=== PATIENT | male | born 1960 | race Hispanic/Latino ===

== ENCOUNTER → 2024-08-05 | Outpatient (CLI) | payer OTHER ==
[2024-08-05 14:18] LABS: BASOPHILS # (AUTO) 0.02 K/uL (0.00-0.20); BASOPHILS % (AUTO) 0.4 % (0.0-5.0); EOSINOPHILS # (AUTO) 0.07 K/uL (0.00-0.70); EOSINOPHILS % (AUTO) 1.4 % (0.0-8.0); HEMATOCRIT 32.5 % (42-54); IMMATURE GRANULOCYTE ABSOLUTE 0.01 K/uL (0-1); LYMPHOCYTES % (AUTO) 40.3 % (21.0-51.0); MEAN CORPUSCULAR HEMOGLOBIN 26.4 pg (27.0-33.0); MEAN CORPUSCULAR HGB CONC 32.9 g/dL (32.0-36.0); MEAN CORPUSCULAR VOLUME 80.2 fL (79-99); MONOCYTES # (AUTO) 0.5 K/uL (0.1-1.0); MONOCYTES % (AUTO) 10.1 % (3.0-13.0); NEUTROPHILS # (AUTO) 2.4 K/uL (1.8-7.7); NEUTROPHILS % (AUTO) 47.6 % (40.0-77.0); PLATELET COUNT (AUTO) 381 K/uL (130-400); RED BLOOD CELL COUNT(AUTO) 4.05 MIL/uL (4.50-6.20); RED CELL DISTRIBUTION WIDTH 19.6 % (11.0-15.5)
[2024-08-05 14:36] LABS: ALBUMIN 3.8 g/dL (3.5-5.0); BILIRUBIN,TOTAL 0.6 mg/dL (0.2-1.0); POTASSIUM 4.3 mmol/L (3.5-5.1); TOTAL PROTEIN, SERUM 7.9 g/dL (6.0-8.3)
[2024-08-05 14:54] LABS: INR 0.97 (0.85-1.15); PROTHROMBIN TIME 10.3 SEC (9.6-11.6)
== END | disposition home or self-care (01) ==
LOC: LAB 13:25
PROVIDERS: ATTEND Internal Medicine
DX: C18.2 Malignant neoplasm of ascending colon (principal); D37.5 Neoplasm of uncertain behavior of rectum; D12.6 Benign neoplasm of colon, unspecified; D50.0 Iron deficiency anemia secondary to blood loss (chronic); K70.9 Alcoholic liver disease, unspecified; R10.30 Lower abdominal pain, unspecified
CPT/HCPCS: 36415; 80053; 82378; 85025; 85610

== ENCOUNTER → 2024-08-08 | Outpatient (CLI) | payer OTHER ==
[~2024-08-08] MED LIST: IOHEXOL 350 MG/ML 100ML INFUS..BTL IV ONE
--- NOTE | 2024-08-08 12:03 | HMCIMG ---
CT CHEST/ABD/PELV W/CONRAST HISTORY: Malignant neoplasm of ascending colon COMPARISON: None TECHNIQUE: Multiple sequential axial images of the chest were obtained from the thoracic inlet through upper abdomen. Patient was given 100 cc of Omnipaque through intravenous route. FINDINGS: COPD changes are seen. Mild interstitial fibrosis changes are noted.. There is no evidence of pulmonary nodule or parenchymal disease. No pleural effusion or pericardial effusion is seen. There is no evidence of pneumothorax. There are normal size mediastinal and hilar lymph nodes. The heart is not enlarged. Degenerative changes of the thoracolumbar spine are present. There is no evidence of adrenal nodule. IMPRESSION: 1. No evidence of pulmonary nodule or effusion is seen. CT CHEST/ABD/PELV W/CONRAST HISTORY: Malignant neoplasm of ascending colon COMPARISON: None TECHNIQUE: Multiple sequential axial images of the abdomen and pelvis were obtained from the dome of the diaphragm through symphysis pubis. Patient was not given contrast through intravenous route. Oral contrast was not given. FINDINGS: Stomach is poorly distended with apparent wall thickening. No bowel obstruction is seen. The liver, spleen, adrenal glands and pancreas are unremarkable. There is no evidence of hydronephrosis bilaterally. No evidence of renal stone is seen. Fecal material is seen in the colon. There are normal size retroperitoneal and mesenteric lymph nodes. No ascites is seen. Atherosclerotic changes are present. No CT evidence of acute appendicitis is seen. Pelvic sidewalls are symmetric bilaterally. Bladder is moderately distended. Anterior bladder wall thickening is seen measuring 17 mm. There is rectal wall thickening posteriorly measuring 2.1 cm in thickness. IMPRESSION: 1. Rectal wall thickening posteriorly measuring 2.1 cm in thickness. No bowel obstruction is seen. Nonspecific gastric wall thickening is also seen. No ascites is seen. Anterior bladder wall thickening is seen. If there is clinical suspicion for cystitis, urinalysis correlation may be helpful. CT was performed with one or more following dose reduction techniques: automated exposure control, adjustment of the mA and kv according to patient's size, or use of a iterative reconstruction technique.
== END | disposition home or self-care (01) ==
LOC: RAH 07:30 → EDUNIT# 08:00
PROVIDERS: ATTEND Internal Medicine
DX: C18.2 Malignant neoplasm of ascending colon (principal); D37.5 Neoplasm of uncertain behavior of rectum; J44.9 Chronic obstructive pulmonary disease, unspecified; J84.10 Pulmonary fibrosis, unspecified; M47.815 Spondylosis without myelopathy or radiculopathy, thoracolumbar region; I70.0 Atherosclerosis of aorta
CPT/HCPCS: 71260; 74177; Q9967

== ENCOUNTER 2024-08-26 08:00 | Inpatient (IN) | payer OTHER ==
[~2024-08-26] VITALS: Ht 172.7 cm; Wt 69.7 kg
[2024-08-26 09:10] VITALS: BP 154/75; PULSE 63; RESP 18; TEMP 99
[2024-08-26 09:22] LABS: BASOPHILS # (AUTO) 0.03 K/uL (0.00-0.20); BASOPHILS % (AUTO) 0.8 % (0.0-5.0); EOSINOPHILS # (AUTO) 0.11 K/uL (0.00-0.70); EOSINOPHILS % (AUTO) 2.8 % (0.0-8.0); HEMATOCRIT 31.8 % (42-54); LYMPHOCYTES # (AUTO) 1.7 K/uL (1.0-4.8); LYMPHOCYTES % (AUTO) 41.8 % (21.0-51.0); MEAN CORPUSCULAR HGB CONC 32.4 g/dL (32.0-36.0); MEAN CORPUSCULAR VOLUME 83.5 fL (79-99); MONOCYTES # (AUTO) 0.5 K/uL (0.1-1.0); MONOCYTES % (AUTO) 12.3 % (3.0-13.0); NEUTROPHILS # (AUTO) 1.7 K/uL (1.8-7.7); NEUTROPHILS % (AUTO) 42.3 % (40.0-77.0); PLATELET COUNT (AUTO) 389 K/uL (130-400); RED BLOOD CELL COUNT(AUTO) 3.81 MIL/uL (4.50-6.20); RED CELL DISTRIBUTION WIDTH 21.4 % (11.0-15.5)
[2024-08-26 09:30] LABS: INR 0.97 (0.85-1.15); PROTHROMBIN TIME 10.3 SEC (9.6-11.6)
[2024-08-26 09:31] LABS: PARTIAL THROMBOPLASTIN TIME 28.8 SEC (26.3-35.5)
[2024-08-26 09:33] LABS: ALBUMIN 3.5 g/dL (3.5-5.0); BILIRUBIN,TOTAL 0.6 mg/dL (0.2-1.0); CREATININE 0.9 mg/dL (0.5-1.3); POTASSIUM 4.5 mmol/L (3.5-5.1); TOTAL PROTEIN, SERUM 7.5 g/dL (6.0-8.3)
--- NOTE | 2024-08-26 12:04 | EKG ---
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
--- NOTE | 2024-08-26 15:27 | NUR ---
REPORT REPORTED CBC TO AMI/DR LO. OK TO PROCEED
[2024-08-28] VITALS (27 sets, daily range): BP systolic 125–154; BP diastolic 58–82; PULSE 57–86; RESP 13–18; TEMP 96–97.9; O2SAT 97
[2024-08-28] MEDS: LACTATED RINGERS 1000ML 1,000 ML IV ONE (06:50)
[2024-08-28] MEDS: ERTAPENEM SODIUM 1 GM in 0.9%NACL 50ML 50 ML IM ONE (06:50)
[2024-08-28] MEDS ORDERED: LIDOCAINE 1%-EPI 1:100,000 20 ML VIAL ONE (07:14)
[2024-08-28] MEDS ORDERED: BUPIvacaine/PF 0.5% 30ML VIAL ONE (07:14)
[2024-08-28] MEDS ORDERED: MIDAZOLAM HCL 1 MG/ML 2ML VIAL ONE (07:27)
[2024-08-28] MEDS ORDERED: proPOFol 10 MG/ML 20ML VIAL IV ONE (07:27)
[2024-08-28] MEDS ORDERED: FENTanyl CITRate PF 50 MCG/1 ML 2ML VIAL ONE ×2 (07:27→10:21)
[2024-08-28] MEDS: acetaMINOPHEN 100 ML ONE (07:36)
[2024-08-28] MEDS: FAMOTIDINE 20MG VIAL IV ONE (07:36)
[2024-08-28] MEDS ORDERED: rocuRONium bROMide 10MG/1ML 5ML VL ONE (07:39)
[2024-08-28] MEDS ORDERED: ondanSETRON 4MG INJ ONE (07:41)
[2024-08-28] MEDS ORDERED: phenylEPHRINE HCL 10 MG/ML 1ML VIAL IV ONE (08:13)
[2024-08-28] MEDS: LIDOCAINE 1%-EPI 1:100,000 20 ML VIAL IJ ONE (08:25)
[2024-08-28] MEDS: INDOCYANINE GREEN 25 MG VIAL IJ ONE (09:01)
[2024-08-28] MEDS ORDERED: GLYCOPYRROLATE 0.2 MG/ML 5 ML VIAL ONE (10:21)
[2024-08-28] MEDS ORDERED: NEOSTIGMINE METHYLSULFATE 1MG/ML IV ONE (10:21)
[2024-08-28] MEDS: morPHINE 2 MG SYG ONE (10:47)
--- NOTE | 2024-08-28 10:50 | OP ---
Operative Note: DATE OF PROCEDURE: 08/28/24 SURGEON: LUCAS LO MD SENIOR PHP WEB DEVELOPER: [None] ANESTHESIA: [General endotracheal anesthesia] ANESTHESIOLOGIST/SENIOR QUALITY ASSURANCE ANALYST: [] PREOPERATIVE DIAGNOSIS: [Ascending colon cancer. Rectal polyp.] POSTOPERATIVE DIAGNOSIS: [Ascending colon cancer. Rectal polyp.] SYNOPSIS: [Good blood flow to anastomosis on firefly. No metastatic disease. Rectal polyp just above the anorectal ring. Rectal polyp noted to be in the anterior location. Able to get index finger above rectal polyp.] PROCEDURE: [1. Robotic right colectomy. 2. Creation of omental flap. 3. Flexible sigmoidoscopy with biopsy.] ESTIMATED BLOOD LOSS: [30 mL] INDICATIONS: [The patient is a very pleasant 64-year-old male who presents to the office with a right-sided colon cancer and a rectal polyp. The patient was offered operative management. Options, risks alternatives and benefits were discussed with him and his family in detail. Risks include infection, bleeding, injury to surrounding structures, need further surgery, leak from anastomosis and poor bowel function. All questions were answered to their satisfaction and they wished to proceed with the operation. They are aware that the rectal polyp only be biopsy today and the patient will need further management in the future.] DESCRIPTION OF PROCEDURE: [The patient was brought to the operating theater and placed supine on the operating table. After appropriate general endotracheal anesthesia was administered and IV antibiotics given the patient was placed in the supine position. The abdomen was prepped and draped in appropriate sterile surgical fashion. Local anesthetic was injected in the Veress needle was used to insufflate the abdomen. Optiview technique was then used to enter the abdomen without any injury to surrounding structures. Abdomen was explored there was no evidence of metastatic disease. Tattoo was noted to be in the ascending colon. Four other trocars were placed under direct visualization without injury. The robot was then docked in the usual sterile fashion. Extraction site was placed in the Pfannenstiel incision and a wound protractor was placed. The right colon was mobilized along the white line of Toldt. The ileocolic vessels were isolated and transected. The remainder of the mesentery was ligated with the vessel sealer. The bowel was amputated at the terminal ileum and the mid transverse colon using a robotic stapler. A [id number]-[id number] anastomosis was created between the small bowel and the transverse colon using a 60 mm robotic stapler. The entero colotomy was closed in 2 layers using a 3-0 absorbable V lock suture. The firefly was utilized to assure good blood flow with a time of transsection as well as the time of the anastomosis. Excellent hemostasis was achieved. Omental flap was created with the vessel sealer and placed over the anastomosis. The fascia was closed with 1. PDS in running fashion. Skin incisions were closed with Monocryl. A colonoscope was then inserted and the rectal polyp was noted to be just above the anorectal ring. I can get my finger above it. It was biopsied multiple times. There were no complications. All the above was discussed with family.] LUCAS LO MD August 28, 2024 10:50
[2024-08-28] MEDS ORDERED: morPHINE 4 MG SYG IV PRN (11:00)
[2024-08-28] MEDS: hydroMORPHone 1 MG INJ ONE (11:00)
[2024-08-28] MEDS ORDERED: acetaMINOPHEN 325 MG TAB PO PRN (11:00)
[2024-08-28] MEDS: D5W-1/2 NS/20MEQ KCL 1,000 ML IV SCH (11:00)
[2024-08-28] MEDS ORDERED: ondanSETRON 4MG INJ IVP PRN (11:00)
[2024-08-28] MEDS: HYDROcodone/APAP 5/325 1 TAB TABLET PO PRN (13:52)
[2024-08-28] MEDS: HEParin 5,000 UNIT VIAL SQ SCH (14:00)
[2024-08-28] MEDS: FAMOTIDINE 20MG VIAL IV SCH (21:30)
[2024-08-29] VITALS (8 sets, daily range): BP systolic 110–143; BP diastolic 58–76; PULSE 75–85; RESP 16–18; TEMP 98–99.4; O2SAT 96–98
[2024-08-29] MEDS: morPHINE 2 MG SYG IV PRN (05:20)
[2024-08-29 05:42] LABS: BASOPHILS # (AUTO) 0.02 K/uL (0.00-0.20); BASOPHILS % (AUTO) 0.4 % (0.0-5.0); EOSINOPHILS # (AUTO) 0.05 K/uL (0.00-0.70); HEMATOCRIT 26.8 % (42-54); IMMATURE GRANULOCYTE ABSOLUTE 0.02 K/uL (0-1); LYMPHOCYTES # (AUTO) 1.1 K/uL (1.0-4.8); LYMPHOCYTES % (AUTO) 20.8 % (21.0-51.0); MEAN CORPUSCULAR HEMOGLOBIN 27.1 pg (27.0-33.0); MEAN CORPUSCULAR HGB CONC 33.2 g/dL (32.0-36.0); MEAN CORPUSCULAR VOLUME 81.5 fL (79-99); MONOCYTES # (AUTO) 0.5 K/uL (0.1-1.0); MONOCYTES % (AUTO) 10.7 % (3.0-13.0); NEUTROPHILS # (AUTO) 3.4 K/uL (1.8-7.7); NEUTROPHILS % (AUTO) 66.7 % (40.0-77.0); PLATELET COUNT (AUTO) 297 K/uL (130-400); RED BLOOD CELL COUNT(AUTO) 3.29 MIL/uL (4.50-6.20); RED CELL DISTRIBUTION WIDTH 20.4 % (11.0-15.5); WHITE BLOOD COUNT (AUTO) 5.1 K/uL (4.8-10.8)
[2024-08-29 05:51] LABS: CREATININE 0.8 mg/dL (0.5-1.3); POTASSIUM 3.9 mmol/L (3.5-5.1)
--- NOTE | 2024-08-29 07:27 | PN ---
COLORECTAL PROGRESS NOTE Date of Visit: August 29, 2024 Time of Visit: 07:26 Events / Notes: This is a 64-year-old male with past medical history of ascending colon cancer and rectal polyp underwent robotic right colectomy. Patient seen today at bedside in no acute distress. He does have some abdominal discomfort that he describes as bloating. Abdomen is soft and nontender. Incisions are clean, dry and intact. Review of Systems: CONSTITUTIONAL: No malaise or change in sensation of wellbeing. ENMT: No rhinorrhea, otorrhea, sinus pain, ear ache. CARDIOVASCULAR: No angina, palpitations, orthopnea or paroxysmal dyspnea. RESPIRATORY: No SOB. GASTROINTESTINAL: No abdominal pain, nausea, vomiting, diarrhea, hematemesis, melena or change in the patient's habitual bowel movements consistency/number. GENITOURINARY: No dysuria, hematuria or change in bladder continence. MUSCULOSKELETAL: No new muscle pain or decrease in muscular strength. No new joint swelling, redness or tenderness. SKIN: No new rash. Physical Exam: GEN: Awake, alert, oriented in person, time and place, and in no acute distress. HEENT: No sinus tenderness. Tympanic membranes were not examined. No rhinorrhea. Oral pharyngeal mucosa is pink, moist and within normal limits. Neck is supple with no cervical lymphadenopathy, thyromegaly or JVD. CHEST: Inspection, palpation and percussion of the chest were unremarkable. Lung auscultation revealed normal breath sounds bilaterally. CARDIAC: PMI is within normal limits. Heart sounds are regular. Normal S1, S2. No gallop or murmur. ABD: Soft, non-tender and not distended. No peritoneal signs on palpation. No organomegaly. Normal bowel sounds. EXT: No cyanosis or clubbing. No edema. SKIN: Intact. No rashes. JOINTS: No evidence of synovitis or acute arthritis. NEURO: Alert and oriented to name, place and person. Cranial nerve examination is unremarkable. No focal motor deficits. Normal speech. Gait is normal. Strength is normal. Vital Signs (last 8hr) Date Time Temp Pulse Resp B/P (MAP) Pulse Ox O2 Delivery O2 Flow Rate FiO2 08/29/24 04:01 98.8 80 18 119/58 97 Room Air 08/29/24 00:02 98.1 85 17 126/65 97 Room Air Laboratory: [ ] Laboratory: Test 08/29/24 05:28 Range/Units White Blood Count 5.1 4.8-10.8 K/uL Red Blood Count 3.29 L 4.50-6.20 MIL/uL Hemoglobin 8.9 L 14.0-18.0 g/dL Hematocrit 26.8 L 42-54 % Mean Corpuscular Volume 81.5 79-99 fL Mean Corpuscular Hemoglobin 27.1 27.0-33.0 pg Mean Corpuscular Hemoglobin Concent 33.2 32.0-36.0 g/dL Red Cell Distribution Width 20.4 H 11.0-15.5 % Platelet Count 297 130-400 K/uL Mean Platelet Volume 8.7 7.5-10.5 fL Immature Granulocyte % (Auto) 0.4 0-1 % Neutrophils (%) (Auto) 66.7 40.0-77.0 % Lymphocytes (%) (Auto) 20.8 L 21.0-51.0 % Monocytes (%) (Auto) 10.7 3.0-13.0 % Eosinophils (%) (Auto) 1.0 0.0-8.0 % Basophils (%) (Auto) 0.4 0.0-5.0 % Neutrophils # (Auto) 3.4 1.8-7.7 K/uL Lymphocytes # (Auto) 1.1 1.0-4.8 K/uL Monocytes # (Auto) 0.5 0.1-1.0 K/uL Eosinophils # (Auto) 0.05 0.00-0.70 K/uL Basophils # (Auto) 0.02 0.00-0.20 K/uL Absolute Immature Granulocyte (auto 0.02 0-1 K/uL Nucleated Red Blood Cells 0.0 0.0-0.19 % Sodium Level 133 L 136-145 mmol/L Potassium Level 3.9 3.5-5.1 mmol/L Chloride Level 99 L 101-111 mmol/L Carbon Dioxide Level 27 21-32 mmol/L Blood Urea Nitrogen 6 L 7-18 mg/dL Creatinine 0.8 0.5-1.3 mg/dL Glomerular Filtration Rate Calc 99 >90 mL/min Random Glucose 99 70-105 mg/dL Total Calcium 8.2 L 8.5-10.1 mg/dL Current Medications Medications (Trade) Dose Ordered Sig/Kemi Route PRN Reason Start Time Stop Time Status Last Admin Dose Admin Acetaminophen (TYLenol 325MG TAB) 650 mg Q4H PRN PO TEMPERATURE GREATER THAN 101 08/28/24 11:00 09/27/24 10:59 Acetaminophen/ Hydrocodone Bitart (NORco 5/325MG) 1 tab Q4H PRN PO MODERATE PAIN (4-6) 08/28/24 11:00 09/02/24 10:59 08/28/24 19:00 1 TAB Famotidine (Pepcid 20mg Vial) 20 mg BID IV 08/28/24 21:00 09/27/24 20:59 08/28/24 21:30 20 MG Heparin Sodium (Porcine) (HEParin 5,000 UNIT VIAL) 5,000 unit TID SQ 08/28/24 14:00 09/27/24 13:59 08/28/24 21:31 5,000 UNIT Morphine Sulfate (morPHINE 2MG SYG) 2 mg Q3H PRN IV MODERATE PAIN (4-6) IF NPO 08/28/24 11:00 09/04/24 10:59 08/29/24 05:20 2 MG Morphine Sulfate (morPHINE 4MG SYG) 4 mg Q3H PRN IV SEVERE PAIN (7-10) 08/28/24 11:00 09/04/24 10:59 Ondansetron HCl (zoFRAN 4MG INJ) 4 mg Q4H PRN IVP NAUSEA 08/28/24 11:00 09/27/24 10:59 Potassium Chloride/Dextrose/ Sod Cl 1,000 ml @ 75 mls/hr [id number] IV 08/28/24 11:00 09/27/24 10:59 08/29/24 00:44 75 MLS/HR Diagnostics / Radiology: [COPY/PASTE HERE IF NO REPORTS PLEASE DELETE SECTION] Assessment: Colon cancer Plan: Encourage ambulation Regular diet PO pain meds Plan for disposition in 24 hours F/U 09/11 @ 2pm in [facility] [employer] [facility] August 29, 2024 07:27
--- NOTE | 2024-08-29 10:21 | NUR ---
DCP: HOME Pt currently lives alone in his home. Pt works at the [employer]. Pt denies any insecurities with food, mcc, and/or utilities. Pt does not have DME, home health, or provider services. PCP is Dr. Mani Guadarrama and uses [facility] for any RX needs. At [place] pt will want go home and dgts will be assisting him at home and will transport. Addendum: 08/29/24 at 1025 by SAHIL FERRARA SS Amended: Links added.
--- NOTE | 2024-08-29 11:50 | HP ---
[facility] HISTORY AND PHYSICAL Date of Service: August 29, 2024 Time of Service: 11:37 Admitting: Dr Molina, Allergies: No Allergy Information Available, No Known Drug Allergies HISTORY OF PRESENT ILLNESS: [ Patient is 64 years old male who came to the GI office with a right-sided colon cancer and rectal polyp. Patient was offered a surgery and patient agreed to proceed with the above-stated plan. Patient was admitted to [facility] on 08/28/2024 for the elective surgery for robotic right colectomy, creation of omental flap, flexible sigmoidoscopy with biopsy which was performed by Dr. Jorge Raines. Patient was seen by nurse practitioner and at this moment patient continues to have a Loyd. No drains. Six incisions on abdomen are nontender, no drainage, dressing clean. Patient is on clear liquid diet. Nurse practitioner reach out to Anai COLLAZO from GI, and at this moment they recommending for the patient to stay one more night for observation. Follow-up outpatient afterwards on 09/11/2024 at 2:00 p.m. in the [place]. We will continue to monitor patient in the meantime. A.m. labs] REVIEW OF SYSTEMS CONSTITUTIONAL: Denies fevers, chills, or night sweats. No unintentional weight loss reported. NEUROLOGICAL: Denies headache, amaurosis fugax, motor weakness, sensory deficit, vertigo/spinning sensation, gait abnormalities, or tremors. ENT: No hearing loss, otalgia, otorrhea, rhinitis, rhinorrhea, hoarseness, or sore throat. CARDIOVASCULAR: Denies any exertional angina, dyspnea on exertion, orthopnea, paroxysmal nocturnal dyspnea, palpitations, life-threatening arrhythmias, claudication. PULMONARY: Denies any shortness of breath, cough, phlegm/sputum, hemoptysis, pleuritic chest pain. SLEEP: Denies morning headaches, daytime somnolence or napping. Denies difficulty falling asleep, staying asleep, waking from sleep. Denies knowledge of snoring. GASTROINTESTINAL: Denies any type of dysphagia to either liquids or solids. Denies nausea, vomiting, pyrosis, early satiety, abdominal pain, diarrhea, constipation, or changes in stool consistency or caliber. Denies coffee-ground emesis, hematemesis, hematochezia, or melanotic stools. S/p robotic right colectomy GENITOURINARY: Denies frequency, urgency, nocturia, hematuria or incontinence (Storage/Irritative symptoms.) Low urinary stream, straining to void, urinary intermittency or hesitancy, splitting of the voiding stream, terminal dribbling. ENDOCRINOLOGIC: Denies polyuria, polydipsia, polyphagia or heat/cold intolerances. HEMATOLOGIC: Denies thrombophilia/previous clots, or coagulopathy/bleeding disorders. ONCOLOGIC: Denies personal history of malignancy. DERMATOLOGIC: Denies rashes or pruritus. PSYCHIATRIC: Denies any suicidal or homicidal ideation. Denies hallucinations. PAST MEDICAL HISTORY: [ Colon cancer, hypertension, ] PAST SURGICAL HISTORY: [ ] PAST SOCIAL HISTORY: [ Patient denies any smoking. Patient occasionally. Patient denies any drug use ] FAMILY HISTORY: [ Patient lives at home with the family.] Coded Allergies: No Known Drug Allergies (Unverified Allergy, Unknown, 08/26/24) PHYSICAL EXAM GENERAL APPEARANCE: The patient is awake, alert, and oriented, in no acute cardiopulmonary distress. NEUROLOGICAL: Cranial nerves II-XII grossly intact. Motor is 5/5 in bilateral upper and lower extremities proximal to distal. No sensory deficits. HEENT: Face is symmetric. Pupils are equal and reactive. Extraocular movements are intact. NECK: Supple. No JVD. No thyromegaly. No submental, submandibular, pre- /postauricular, occipital or supraclavicular lymphadenopathy. CHEST: Normal chest expansion. No Telemetry. LUNGS: Absence of any rales, rhonchi or any wheezing. CARDIOVASCULAR: Regular. S1 and S2 normal. No appreciable rubs, murmurs or gallops. ABDOMEN: Soft, nontender, and nondistended. There is no rebound, voluntary guarding, or rigidity. : Deferred. No Loyd. EXTREMITIES: Non-edematous and not cyanotic. No clubbing. Good capillary refill. SKIN: No skin breakdown. Vital Sign (Last 24 Hours) 08/28/24 08/29/24 19:45 07:51 Temp 99.3 Pulse 76 Resp 16 B/P (MAP) 110/64 Pulse Ox 98 O2 Delivery Room Air O2 Flow Rate 0 FiO2 21 Intake & Output (last 24hrs) 08/28/24 08/28/24 08/29/24 15:00 23:00 07:00 Intake Total 1000 ml Output Total 800 ml 600 ml Balance 200 ml -600 ml LABS: Laboratory: Test 08/29/24 05:28 Range/Units White Blood Count 5.1 4.8-10.8 K/uL Red Blood Count 3.29 L 4.50-6.20 MIL/uL Hemoglobin 8.9 L 14.0-18.0 g/dL Hematocrit 26.8 L 42-54 % Mean Corpuscular Volume 81.5 79-99 fL Mean Corpuscular Hemoglobin 27.1 27.0-33.0 pg Mean Corpuscular Hemoglobin Concent 33.2 32.0-36.0 g/dL Red Cell Distribution Width 20.4 H 11.0-15.5 % Platelet Count 297 130-400 K/uL Mean Platelet Volume 8.7 7.5-10.5 fL Immature Granulocyte % (Auto) 0.4 0-1 % Neutrophils (%) (Auto) 66.7 40.0-77.0 % Lymphocytes (%) (Auto) 20.8 L 21.0-51.0 % Monocytes (%) (Auto) 10.7 3.0-13.0 % Eosinophils (%) (Auto) 1.0 0.0-8.0 % Basophils (%) (Auto) 0.4 0.0-5.0 % Neutrophils # (Auto) 3.4 1.8-7.7 K/uL Lymphocytes # (Auto) 1.1 1.0-4.8 K/uL Monocytes # (Auto) 0.5 0.1-1.0 K/uL Eosinophils # (Auto) 0.05 0.00-0.70 K/uL Basophils # (Auto) 0.02 0.00-0.20 K/uL Absolute Immature Granulocyte (auto 0.02 0-1 K/uL Nucleated Red Blood Cells 0.0 0.0-0.19 % Sodium Level 133 L 136-145 mmol/L Potassium Level 3.9 3.5-5.1 mmol/L Chloride Level 99 L 101-111 mmol/L Carbon Dioxide Level 27 21-32 mmol/L Blood Urea Nitrogen 6 L 7-18 mg/dL Creatinine 0.8 0.5-1.3 mg/dL Glomerular Filtration Rate Calc 99 >90 mL/min Random Glucose 99 70-105 mg/dL Total Calcium 8.2 L 8.5-10.1 mg/dL Current Medications Medications (Trade) Dose Ordered Sig/Kemi Route PRN Reason Start Time Stop Time Status Last Admin Dose Admin Acetaminophen (TYLenol 325MG TAB) 650 mg Q4H PRN PO TEMPERATURE GREATER THAN 101 08/28/24 11:00 09/27/24 10:59 Acetaminophen/ Hydrocodone Bitart (NORco 5/325MG) 1 tab Q4H PRN PO MODERATE PAIN (4-6) 08/28/24 11:00 09/02/24 10:59 08/28/24 19:00 1 TAB Famotidine (Pepcid 20mg Vial) 20 mg BID IV 08/28/24 21:00 09/27/24 20:59 08/29/24 08:05 20 MG Heparin Sodium (Porcine) (HEParin 5,000 UNIT VIAL) 5,000 unit TID SQ 08/28/24 14:00 09/27/24 13:59 08/29/24 08:12 5,000 UNIT Morphine Sulfate (morPHINE 2MG SYG) 2 mg Q3H PRN IV MODERATE PAIN (4-6) IF NPO 08/28/24 11:00 09/04/24 10:59 08/29/24 05:20 2 MG Morphine Sulfate (morPHINE 4MG SYG) 4 mg Q3H PRN IV SEVERE PAIN (7-10) 08/28/24 11:00 09/04/24 10:59 Ondansetron HCl (zoFRAN 4MG INJ) 4 mg Q4H PRN IVP NAUSEA 08/28/24 11:00 09/27/24 10:59 Potassium Chloride/Dextrose/ Sod Cl 1,000 ml @ 75 mls/hr [id number] IV 08/28/24 11:00 09/27/24 10:59 08/29/24 00:44 75 MLS/HR DIAGNOSTICS / RADIOLOGY: [ ] ASSESSMENT: [ Ascending colon cancer, POA Rectal polyp POA s/p robotic right colectomy, creation of omental flap, flexible sigmoidoscopy with biopsy on 08/28/[address] Raines Uncontrolled hypertension POA Multifactorial anemia due to above/surgery POA Electrolyte imbalance hyponatremia Na 133 POA Acute dehydration POA ] PLAN: [ Admit to: Medical-surgical floor Consults: GI Antibiotics: None Tests: None NEURO: Minimize central acting medications as possible. Fall Precautions. Well lighted room through the day and minimize interruptions through the night to prevent acute delirium. PULMONARY: Supplemental 02 as needed BiPAP as necessary, for respiratory distress Titrate Fio2 to keep Spo2 > or = 90% DuoNeb�s and CPT as needed IS hourly while awake for pulmonary hygiene Out of bed to chair as tolerated VAP Bundle Maintain aspiration precautions at all times CARDIOVASCULAR: Follow hemodynamics. Vital signs per facility protocol GI & NUTRITION: S/p robotic right colectomy, s/p flexible sigmoidoscopy with the biopsy Continue nutritional support Aspirations precautions Prokinetic agents and laxatives as needed KIDNEYS & ELECTROLYTES: Strict monitoring of intake and output Daily weights Avoid nephrotoxic agents Monitor electrolytes and replace as needed Goal urine output of 30mL/hr or 0.5mL/kg/hr Medications to be dosed according to renal function. Avoid contrast if possible ENDOCRINE: Maintain blood glucose between 100-180 at all times. Insulin sliding scale for blood glucose management Hypoglycemia and hyperglycemia protocol in place INFECTIOUS DISEASE: Trend temperature, WBC and procalcitonin level Follow cultures, deescalate antibiotics as soon as possible. Panculture if new onset fever HEMATOLOGY & COAGULATION: Monitor H&H. Keep Hgb > 7 Transfuse 1 unit of PRBC for Hgb < 7 Transfuse 1 pack of platelets of platelets < 20, 000 Watch for any signs and symptoms of bleeding SKIN: Pressure ulcer prevention per facility protocol Specialty mattress as needed Treatment plan discussed with patient and family at the bedside Medications to be reconciled once obtained by patient and/or family and available to be reconciled in computer p.r.n. medication for pain nausea and vomiting Questions were answered We will continue to monitor the patient closely Cost Control Supervisor for disposition Code Status: Full Resuscitation Disposition: Home Prognosis: Guarded] ADVANCED CARE PLANNING 1. Which of the following were discussed? Hospice Care - Yes / No Therapeutic options - Yes / No Advance Directives - Yes / No Other discussions - 2. Discussed with who? Patient 3. Voluntary nature of this service was explained to the patient? Yes / No 4. Amount of time spent - __ more than 35 minutes 5. Reviewed by Physician? (if this service was performed by NPP) Yes / No ATTESTATION BY PHYSICIAN I have seen and examined the patient. I reviewed the documentation, medical decision making, and treatment plan as noted by the mid-level provider above. I agree with the findings and plan of care. NABIL MOLINA MD, KATARZYNA B E LEARNING DEVELOPER August 29, 2024 11:50
[2024-08-29] MEDS ORDERED: DEXTROSE 50%-WATER 50 ML DISP.SYRIN IV PRN (12:00)
[2024-08-29] MEDS ORDERED: PoTASSium chl 10% ELIXIR 20MEQ 20 MEQ/15 ML UDCUP PO PRN (12:00)
[2024-08-29] MEDS ORDERED: MAGNESIUM 2GM PREMIX 50ML 50 ML IV PRN (12:00)
[2024-08-29] MEDS ORDERED: GLUCAGON 1MG KIT 1 MG ML IM PRN (12:00)
[2024-08-29] MEDS ORDERED: PoTASSium chloRIDE 20MEQ/100ML 100 ML IV PRN (12:00)
[2024-08-29] MEDS ORDERED: PoTASSium chloRIDE 20MEQ ER 20 MEQ ERTAB PO PRN (12:00)
--- NOTE | 2024-08-29 12:04 | NUR ---
FOLE HERNANDEZ CATHETER REMOVED. PATIENT TOLERATED WELL. DE TO VOID IN 6 HOURS
[2024-08-29] MEDS: INSULIN humuLIN R 100 UNIT/ML 3ML SQ SCH (16:30)
[2024-08-29] MEDS: metoCLOPRAmide 10 MG/2 ML VIAL IVP ONE (18:13)
[2024-08-29] MEDS: dexaMETHasone SOD PHOSPHATE 4 MG/ML 1ML VIAL IV ONE (18:13)
[2024-08-29] MEDS: ondanSETRON 4MG INJ IVP ONE (18:13)
[2024-08-30] VITALS: BP 126/70; PULSE 84; RESP 18; TEMP 97.9
[2024-08-30 04:32] VITALS: BP 119/67; PULSE 80; RESP 17; TEMP 98.2
[2024-08-30 05:02] LABS: BASOPHILS # (AUTO) 0.01 K/uL (0.00-0.20); BASOPHILS % (AUTO) 0.1 % (0.0-5.0); EOSINOPHILS # (AUTO) 0.01 K/uL (0.00-0.70); EOSINOPHILS % (AUTO) 0.1 % (0.0-8.0); HEMATOCRIT 28.6 % (42-54); IMMATURE GRANULOCYTE ABSOLUTE 0.03 K/uL (0-1); LYMPHOCYTES # (AUTO) 0.6 K/uL (1.0-4.8); MEAN CORPUSCULAR HEMOGLOBIN 27.5 pg (27.0-33.0); MEAN CORPUSCULAR HGB CONC 33.6 g/dL (32.0-36.0); MEAN CORPUSCULAR VOLUME 81.9 fL (79-99); MONOCYTES # (AUTO) 0.3 K/uL (0.1-1.0); MONOCYTES % (AUTO) 4.8 % (3.0-13.0); NEUTROPHILS # (AUTO) 6.1 K/uL (1.8-7.7); NEUTROPHILS % (AUTO) 85.6 % (40.0-77.0); PLATELET COUNT (AUTO) 324 K/uL (130-400); RED BLOOD CELL COUNT(AUTO) 3.49 MIL/uL (4.50-6.20); RED CELL DISTRIBUTION WIDTH 20.4 % (11.0-15.5); WHITE BLOOD COUNT (AUTO) 7.1 K/uL (4.8-10.8)
[2024-08-30 05:30] LABS: CREATININE 0.9 mg/dL (0.5-1.3); POTASSIUM 4.3 mmol/L (3.5-5.1)
[2024-08-30 08:00] VITALS: BP 124/63; PULSE 85; RESP 18; TEMP 98.6
--- NOTE | 2024-08-30 08:13 | PN ---
COLORECTAL PROGRESS NOTE Date of Visit: August 30, 2024 Time of Visit: 08:13 Events / Notes: This is a 64-year-old male with past medical history of ascending colon cancer and rectal polyp underwent robotic right colectomy. Patient seen today at bedside in no acute distress. He does have some abdominal discomfort that he describes as bloating. Abdomen is soft and nontender. Incisions are clean, dry and intact. Review of Systems: CONSTITUTIONAL: No malaise or change in sensation of wellbeing. ENMT: No rhinorrhea, otorrhea, sinus pain, ear ache. CARDIOVASCULAR: No angina, palpitations, orthopnea or paroxysmal dyspnea. RESPIRATORY: No SOB. GASTROINTESTINAL: No abdominal pain, nausea, vomiting, diarrhea, hematemesis, melena or change in the patient's habitual bowel movements consistency/number. GENITOURINARY: No dysuria, hematuria or change in bladder continence. MUSCULOSKELETAL: No new muscle pain or decrease in muscular strength. No new joint swelling, redness or tenderness. SKIN: No new rash. Physical Exam: GEN: Awake, alert, oriented in person, time and place, and in no acute distress. HEENT: No sinus tenderness. Tympanic membranes were not examined. No rhinorrhea. Oral pharyngeal mucosa is pink, moist and within normal limits. Neck is supple with no cervical lymphadenopathy, thyromegaly or JVD. CHEST: Inspection, palpation and percussion of the chest were unremarkable. Lung auscultation revealed normal breath sounds bilaterally. CARDIAC: PMI is within normal limits. Heart sounds are regular. Normal S1, S2. No gallop or murmur. ABD: Soft, non-tender and not distended. No peritoneal signs on palpation. No organomegaly. Normal bowel sounds. EXT: No cyanosis or clubbing. No edema. SKIN: Intact. No rashes. JOINTS: No evidence of synovitis or acute arthritis. NEURO: Alert and oriented to name, place and person. Cranial nerve examination is unremarkable. No focal motor deficits. Normal speech. Gait is normal. Strength is normal. Vital Signs (last 8hr) Date Time Temp Pulse Resp B/P (MAP) Pulse Ox O2 Delivery O2 Flow Rate FiO2 08/30/24 08:00 98.6 85 18 124/63 95 Room Air 08/30/24 04:32 98.2 80 17 119/67 96 Room Air Laboratory: [ ] Laboratory: Test 08/30/24 04:49 Range/Units White Blood Count 7.1 # 4.8-10.8 K/uL Red Blood Count 3.49 L 4.50-6.20 MIL/uL Hemoglobin 9.6 L 14.0-18.0 g/dL Hematocrit 28.6 L 42-54 % Mean Corpuscular Volume 81.9 79-99 fL Mean Corpuscular Hemoglobin 27.5 27.0-33.0 pg Mean Corpuscular Hemoglobin Concent 33.6 32.0-36.0 g/dL Red Cell Distribution Width 20.4 H 11.0-15.5 % Platelet Count 324 130-400 K/uL Mean Platelet Volume 9.0 7.5-10.5 fL Immature Granulocyte % (Auto) 0.4 0-1 % Neutrophils (%) (Auto) 85.6 H 40.0-77.0 % Lymphocytes (%) (Auto) 9.0 L 21.0-51.0 % Monocytes (%) (Auto) 4.8 3.0-13.0 % Eosinophils (%) (Auto) 0.1 0.0-8.0 % Basophils (%) (Auto) 0.1 0.0-5.0 % Neutrophils # (Auto) 6.1 1.8-7.7 K/uL Lymphocytes # (Auto) 0.6 L 1.0-4.8 K/uL Monocytes # (Auto) 0.3 0.1-1.0 K/uL Eosinophils # (Auto) 0.01 0.00-0.70 K/uL Basophils # (Auto) 0.01 0.00-0.20 K/uL Absolute Immature Granulocyte (auto 0.03 0-1 K/uL Nucleated Red Blood Cells 0.0 0.0-0.19 % White Cell Morphology Comment See comments Sodium Level 132 L 136-145 mmol/L Potassium Level 4.3 3.5-5.1 mmol/L Chloride Level 99 L 101-111 mmol/L Carbon Dioxide Level 26 21-32 mmol/L Blood Urea Nitrogen 5 L 7-18 mg/dL Creatinine 0.9 0.5-1.3 mg/dL Glomerular Filtration Rate Calc 96 >90 mL/min Random Glucose 130 H 70-105 mg/dL Total Calcium 8.6 8.5-10.1 mg/dL Current Medications Medications (Trade) Dose Ordered Sig/Kemi Route PRN Reason Start Time Stop Time Status Last Admin Dose Admin Acetaminophen (TYLenol 325MG TAB) 650 mg Q4H PRN PO TEMPERATURE GREATER THAN 101 08/28/24 11:00 09/27/24 10:59 Acetaminophen/ Hydrocodone Bitart (NORco 5/325MG) 1 tab Q4H PRN PO MODERATE PAIN (4-6) 08/28/24 11:00 09/02/24 10:59 08/29/24 13:44 1 TAB Dextrose (D50w) 50 ml AD PRN IV HYPOGLYCEMIA PROTOCOL 08/29/24 12:00 09/28/24 11:59 Famotidine (Pepcid 20mg Vial) 20 mg BID IV 08/28/24 21:00 09/27/24 20:59 08/29/24 20:53 20 MG Glucagon (Glucagon 1mg Kit) 1 mg AD PRN IM HYPOGLYCEMIA PROTOCOL 08/29/24 12:00 09/28/24 11:59 Heparin Sodium (Porcine) (HEParin 5,000 UNIT VIAL) 5,000 unit TID SQ 08/28/24 14:00 09/27/24 13:59 08/29/24 20:54 5,000 UNIT Insulin Human Regular (humuLIN R 100 UNIT/ML 3ML) INSULIN SLIDING SCAL... ACHS SQ 08/29/24 16:30 09/28/24 16:29 Magnesium Sulfate 50 ml @ 0 mls/hr PROTOCOL PRN IV other 08/29/24 12:00 09/28/24 11:59 Morphine Sulfate (morPHINE 2MG SYG) 2 mg Q3H PRN IV MODERATE PAIN (4-6) IF NPO 08/28/24 11:00 09/04/24 10:59 08/29/24 18:13 2 MG Morphine Sulfate (morPHINE 4MG SYG) 4 mg Q3H PRN IV SEVERE PAIN (7-10) 08/28/24 11:00 09/04/24 10:59 Ondansetron HCl (zoFRAN 4MG INJ) 4 mg Q4H PRN IVP NAUSEA 08/28/24 11:00 09/27/24 10:59 Potassium Chloride/Dextrose/ Sod Cl 1,000 ml @ 75 mls/hr [id number] IV 08/28/24 11:00 09/27/24 10:59 08/29/24 20:56 75 MLS/HR Potassium Chloride 100 ml @ 100 mls/hr AD PRN IV POTASSIUM PROTOCOL 08/29/24 12:00 09/28/24 11:59 Potassium Chloride (K-Dur/Klor-Con 20meq) 20 meq AD PRN PO POTASSIUM PROTOCOL 08/29/24 12:00 09/28/24 11:59 Potassium Chloride (KCl 10% Elixir 20meq/15ml) 20 meq AD PRN PO POTASSIUM PROTOCOL 08/29/24 12:00 09/28/24 11:59 Diagnostics / Radiology: [COPY/PASTE HERE IF NO REPORTS PLEASE DELETE SECTION] Assessment: Colon cancer Plan: Encourage ambulation Regular diet PO pain meds Plan for disposition today F/U 09/11 @ 2pm in [facility] [employer] STAMPER August 30, 2024 08:13
[2024-08-30 09:00] VITALS: O2SAT 95
[2024-08-30] MEDS ORDERED: FAMO40TA7 PO (11:25)
--- NOTE | 2024-08-30 11:38 | DS ---
Discharge Summary Hospital Course Summary: DATE OF ADMISSION:[08/28/24] DATE OF DISCHARGE:[08/30/2024] DISPOSITION:[Home] CONDITION:[Medically stable] CONSULTANTS:[] FOLLOW UP APPOINTMENTS:[PCP 2 to 3 days. GI 09/11/2024 at 2:00 p.m. in [place]] PROCEDURES:[Right robotic colectomy, creation of omental flap, flexible sigmoidoscopy with biopsy by Dr. Raines 08/28/2024] IMAGING: report attached to summary MICROBIOLOGY: report attached to summary ACTIVITY:[Independent] HOME MEDICATIONS: see med recc NEW MEDICATIONS:[Protonix, tramadol 50 mg q.8 hours PRN 30 pills written prescription given] EMERGENCY INSTRUCTIONS: The patient was instructed to present to the nearest Emergency departmentr or call 911 once their symptoms will return or worsen Thermal Intelligence Analyst(s): Patient is 64 years old male who was admitted outpatient to [facility] for right-sided colon cancer and rectal polyp. Dr. Raines performed elective surgery for robotic right colectomy, creation of omental flap, flexible sigmoidoscopy with biopsy on 08/28/2024. Loyd catheter was discontinued after surgery. Patient was placed on a clear liquid diet and then was advanced to GI soft. Today patient was cleared by the GI to be discharged home follow up outpatient with PCP 2 to 3 days. With the GI 09/11/2024 at 2:00 p.m. in [facility]. Patient denies any shortness of breath, chest pain, nausea, vomiting or any other discomfort. Patient also stated that he is able to tolerate food and also had two bowel movements. Daughter at bedside. Procedure(s): REVIEW OF SYSTEMS CONSTITUTIONAL: Denies fevers, chills, or night sweats. No unintentional weight loss reported. NEUROLOGICAL: Denies headache, amaurosis fugax, motor weakness, sensory deficit, vertigo/spinning sensation, gait abnormalities, or tremors. ENT: No hearing loss, otalgia, otorrhea, rhinitis, rhinorrhea, hoarseness, or sore throat. CARDIOVASCULAR: Denies any exertional angina, dyspnea on exertion, orthopnea, paroxysmal nocturnal dyspnea, palpitations, life-threatening arrhythmias, claudication. PULMONARY: Denies any shortness of breath, cough, phlegm/sputum, hemoptysis, pleuritic chest pain. SLEEP: Denies morning headaches, daytime somnolence or napping. Denies difficulty falling asleep, staying asleep, waking from sleep. Denies knowledge of snoring. GASTROINTESTINAL: Denies any type of dysphagia to either liquids or solids. Denies nausea, vomiting, pyrosis, early satiety, abdominal pain, diarrhea, constipation, or changes in stool consistency or caliber. Denies coffee-ground emesis, hematemesis, hematochezia, or melanotic stools. S/p robotic right colectomy GENITOURINARY: Denies frequency, urgency, nocturia, hematuria or incontinence (Storage/Irritative symptoms.) Low urinary stream, straining to void, urinary intermittency or hesitancy, splitting of the voiding stream, terminal dribbling. ENDOCRINOLOGIC: Denies polyuria, polydipsia, polyphagia or heat/cold intolerances. HEMATOLOGIC: Denies thrombophilia/previous clots, or coagulopathy/bleeding disorders. ONCOLOGIC: Denies personal history of malignancy. DERMATOLOGIC: Denies rashes or pruritus. PSYCHIATRIC: Denies any suicidal or homicidal ideation. Denies hallucinations. Assessment/Plan: ASSESSMENT: [ Ascending colon cancer, POA Rectal polyp POA s/p robotic right colectomy, creation of omental flap, flexible sigmoidoscopy with biopsy on 08/28/[address] Raines Uncontrolled hypertension POA Multifactorial anemia due to above/surgery POA Electrolyte imbalance hyponatremia Na 133 POA Acute dehydration POA Time spent arranging discharge: 31-60 minutes ATTESTATION BY PHYSICIAN I have seen and examined the patient. I reviewed the documentation, medical decision making, and treatment plan as noted by the mid-level provider above. I agree with the findings and plan of care. NABIL BARRERA MD, KATARZYNA B LINTER TENDER August 30, 2024 11:38
[2024-08-30 11:44] VITALS: BP 141/79; PULSE 85; RESP 20; TEMP 98.8
--- NOTE | 2024-08-30 13:20 | NUR ---
DC NOTE DC INSTRUCTIONS AND FOLLOW UP APPOINTMENT WITH PRINTED PRESCRIPTION GIVEN TO PT AND DAUGHTER AT BEDSIDE, VERBALIZED UNDERSTANDING. 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 NO FURTHER COMMENTS OR CONCERNS AT THIS TIME.
--- NOTE | 2024-09-02 11:18 | NUR ---
Transitional Phone Call Spoke to patient, states he is doing good, started working this morning." States he has new prescription medications; no questions or concerns. States he has the follow up appointment for surgeon - Dr. Raines set for 09/11/2024 at 1400; states has not made follow up appointment for PCP - Dr. Mani Guadarrama; educated patient PCP appointment's importance and are recommended two to three days after discharge; verbalized understanding and will make an appointment for this week. No further concerns or questions at this time.
== END 2024-08-30 13:29 | disposition home or self-care (01) | DRG 330 ==
LOC: DAHIP 08-28 06:15 → 3DH 08-28 11:45
PROVIDERS: ADMIT Internal Medicine; ATTEND Internal Medicine
PROC: 0DJD8ZZ Inspection of Lower Intestinal Tract, Via Natural or Artificial Opening Endoscopic (ICD-10-PCS; 2024-08-28)
PROC: 8E0W4CZ Robotic Assisted Procedure of Trunk Region, Percutaneous Endoscopic Approach (ICD-10-PCS; 2024-08-28)
PROC: 0DBP8ZX Excision of Rectum, Via Natural or Artificial Opening Endoscopic, Diagnostic (ICD-10-PCS; 2024-08-28)
PROC: 0DBK4ZZ Excision of Ascending Colon, Percutaneous Endoscopic Approach (ICD-10-PCS; principal; 2024-08-28 07:56)
PROC: 0DXU4ZW Transfer Omentum to Abdominal Region, Percutaneous Endoscopic Approach (ICD-10-PCS; 2024-08-28 07:56)
DX: C18.2 Malignant neoplasm of ascending colon (principal); E87.1 Hypo-osmolality and hyponatremia; E86.0 Dehydration; I10 Essential (primary) hypertension; K62.1 Rectal polyp; D64.9 Anemia, unspecified
CPT/HCPCS: 36415; 45331; 80048; 80053; 85025; 85610; 85730; 86850; 86900; 86901; 88305; 88309; 93005; A4344; G0378; J1100; J1171; J1335; J1644; J2250; J2270; J2371; J2405; J2704; J2710; J2765; J3010; J3480; J3490; J7030; J7120; A4215; A4216; A4221; A4222; A4223; A4600; A4649; A4663; A4930; A6260; C1769; J0665

== ENCOUNTER → 2024-09-20 | Outpatient (CLI) | payer OTHER ==
[~2024-09-20] VITALS: Ht 172.7 cm; Wt 68.1 kg
[~2024-09-20] MED LIST changes: +FAMO40TA7 PO; +INVANZ 1GM+NS 50ML IVPB 50 ML IV ONE; -IOHEXOL 350 MG/ML 100ML INFUS..BTL IV ONE
[2024-09-20 12:22] LABS: BASOPHILS # (AUTO) 0.04 K/uL (0.00-0.20); BASOPHILS % (AUTO) 0.8 % (0.0-5.0); HEMATOCRIT 32.2 % (42-54); IMMATURE GRANULOCYTE ABSOLUTE 0.01 K/uL (0-1); LYMPHOCYTES # (AUTO) 1.8 K/uL (1.0-4.8); LYMPHOCYTES % (AUTO) 35.5 % (21.0-51.0); MEAN CORPUSCULAR HEMOGLOBIN 26.8 pg (27.0-33.0); MEAN CORPUSCULAR HGB CONC 32.3 g/dL (32.0-36.0); MONOCYTES # (AUTO) 0.5 K/uL (0.1-1.0); MONOCYTES % (AUTO) 9.4 % (3.0-13.0); NEUTROPHILS # (AUTO) 2.6 K/uL (1.8-7.7); NEUTROPHILS % (AUTO) 52.1 % (40.0-77.0); PLATELET COUNT (AUTO) 397 K/uL (130-400); RED BLOOD CELL COUNT(AUTO) 3.88 MIL/uL (4.50-6.20); RED CELL DISTRIBUTION WIDTH 19.4 % (11.0-15.5)
[2024-09-20 12:34] LABS: INR 0.97 (0.85-1.15); PROTHROMBIN TIME 10.3 SEC (9.6-11.6)
[2024-09-20 12:35] LABS: PARTIAL THROMBOPLASTIN TIME 31.3 SEC (26.3-35.5)
[2024-09-20 12:40] LABS: ALBUMIN 3.6 g/dL (3.5-5.0); BILIRUBIN,TOTAL 0.7 mg/dL (0.2-1.0); CREATININE 0.8 mg/dL (0.5-1.3); TOTAL PROTEIN, SERUM 7.6 g/dL (6.0-8.3)
[2024-09-20 12:53] VITALS: BP 152/67; PULSE 59; RESP 14; TEMP 98.4
--- NOTE | 2024-09-20 13:18 | EKG ---
[facility] Test Date: 2024-09-20 Test Time: 12:13:24 Pat Name: WILMER THAYER Department: [facility] Room: Gender: M Urology Physician Assistant: [id number] : 1960 Requested By: LUCAS LO Order Number: [id number] Reading MD: Khanh De Luna Measurements Intervals [place] Rate: 77 P: 0 [place]: 0 QRS: 65 QRSD: 90 T: 65 QT: 395 QTc: 446 Interpretive Statements Atrial flutter/fibrillation Compared to ECG 08/26/2024 08:58:07 Sinus rhythm no longer present Electronically Signed On 09-23-2024 22:13:27 CDT by Khanh De Luna Please click the below link to view image of tracing.
--- NOTE | 2024-09-24 12:23 | NUR ---
RE: EKG REPORTED EKG RESULTS TO DR ENGLAND. PER DR ENGLAND, PATIENT WILL NEED CARDIAC CLEARANCE FOR NEW ONSET OF AFIB/A FLUTTER.
== END | disposition home or self-care (01) ==
LOC: DAH 11:45 → EDSTATUS 09-23 08:00
PROVIDERS: ATTEND Surgery
DX: D37.5 Neoplasm of uncertain behavior of rectum (principal); R10.32 Left lower quadrant pain
CPT/HCPCS: 93005; 80053; 85025; 85610; 85730; 36415; A6260; J1335

== ENCOUNTER 2024-11-06 06:15 | Day surgery (SDC) | payer OTHER ==
[2024-11-04 12:15] VITALS: BP 155/73; PULSE 66; RESP 18; TEMP 98.3
[2024-11-04 12:35] LABS: IMMATURE GRANULOCYTE ABSOLUTE 0.01 K/uL (0-1); NUCLEATED RED BLOOD CELLS 0.0 % (0.0-0.19); PLATELET COUNT (AUTO) 337 K/uL (130-400); RED BLOOD CELL COUNT(AUTO) 3.72 MIL/uL (4.50-6.20); RED CELL DISTRIBUTION WIDTH 18.7 % (11.0-15.5); WHITE BLOOD COUNT (AUTO) 4.7 K/uL (4.8-10.8)
[2024-11-04 12:44] LABS: CREATININE 0.8 mg/dL (0.5-1.3); GLOMERULAR FILTR. RATE CALC 99.0 mL/min (>90); GLUCOSE,RANDOM 75.0 mg/dL (70-105); SODIUM SERUM 135.0 mmol/L (136-145); UREA NITROGEN, BLOOD 9.0 mg/dL (7-18)
[2024-11-04 12:47] LABS: INR 0.98 (0.85-1.15)
--- NOTE | 2024-11-05 14:00 | NUR ---
RE: LABS REPORTED CBC RESULTS TO AMI/DR LO. NO NEW ORDERS RECEIVED.
[2024-11-06] VITALS (10 sets, daily range): BP systolic 137–164; BP diastolic 70–86; PULSE 67–82; RESP 15–18; TEMP 97.1–97.9
[~2024-11-06] VITALS: Ht 172.7 cm; Wt 69.4 kg
[~2024-11-06 06:15] MED LIST changes: +DICY-20 PO; -FAMO40TA7 PO; -INVANZ 1GM+NS 50ML IVPB 50 ML IV ONE
[2024-11-06] MEDS: LACTATED RINGERS 1000ML 1,000 ML IV ONE (07:21)
[2024-11-06] MEDS ORDERED: INVANZ 1GM+NS 50ML IVPB 50 ML IV ONE (08:30)
[2024-11-06] MEDS ORDERED: LIDOCAINE PF 100MG/5ML (2%) SYRINGE 5ML ONE ×2 (09:35→10:18)
[2024-11-06] MEDS ORDERED: MIDAZOLAM HCL 1 MG/ML 2ML VIAL ONE (09:35)
[2024-11-06] MEDS ORDERED: LIDOCAINE HCL 1% 20 ML VIAL ONE (10:12)
[2024-11-06] MEDS ORDERED: LIDOCAINE 1%-EPI 1:100,000 20 ML VIAL ONE (10:29)
[2024-11-06] MEDS ORDERED: GLYCOPYRROLATE 0.2 MG/ML 5 ML VIAL ONE (11:26)
[2024-11-06] MEDS: LIDOCAINE 1%-EPI 1:100,000 20 ML VIAL IJ ONE ×2 (11:56)
[2024-11-06] MEDS ORDERED: NEOSTIGMINE METHYLSULFATE 1MG/ML IV ONE (12:13)
[2024-11-06] MEDS: LIDOCAINE HCL 2% PF 20 ML JEL DISP.SYRIN MM ONE (12:20)
--- NOTE | 2024-11-06 12:35 | OP ---
Operative Note: DATE OF PROCEDURE: 11/06/24 SURGEON: LUCAS LO MD PLATING ENGINEER: [None] ANESTHESIA: [General endotracheal anesthesia] ANESTHESIOLOGIST/PRODUCTION WORKER: [] PREOPERATIVE DIAGNOSIS: [Rectal mass] POSTOPERATIVE DIAGNOSIS: [Rectal mass] SYNOPSIS: [Large rectal mass not amenable to transanal excision] PROCEDURE: [Rectal biopsy] ESTIMATED BLOOD LOSS: [Minimal] INDICATIONS: [The patient is a very pleasant 64-year-old male who presented with a rectal polyp. He was offered transanal excision. The complications, risks alternatives and benefits were discussed with him and his family. Risks include infection, bleeding, injury to surrounding structures, need for further procedures, leak from the suture line and recurrence of disease. All questions were answered to their satisfaction and they wished to proceed with the operation.] DESCRIPTION OF PROCEDURE: [The patient is brought to the operating theater placed supine on the operating table. After appropriate general anesthesia was administered and IV antibiotics given the patient is placed in the prone ray- knife position. The anus was prepped and draped in appropriate sterile surgical fashion. Local anesthetic was injected as a block. Digital rectal exam was performed and the patient was noted to have a pretty large mass involving the rectum which increased in size from his last evaluation. Anoscope was inserted and the mass appeared to be neoplastic. Large biopsies were taken and passed off table as specimen. Excellent hemostasis was achieved. The decision was made to not perform the transanal excision. This was discussed with the family. There were no complications. The instrument, sponge and needle count reported as correct x2 by nursing staff.] LUCAS LO MD Nov 06, 2024 12:35
== END 2024-11-06 13:50 | disposition home or self-care (01) ==
LOC: DAH 06:15
PROVIDERS: ATTEND Surgery
DX: K62.89 Other specified diseases of anus and rectum (principal); C20 Malignant neoplasm of rectum; D37.5 Neoplasm of uncertain behavior of rectum; C18.2 Malignant neoplasm of ascending colon; Z79.899 Other long term (current) drug therapy; Z86.2 Personal history of diseases of the blood and blood-forming organs and certain disorders involving the immune mechanism
CPT/HCPCS: 80048; 85025; 85610; 85730; 36415; 45999; 88305; A6260; J1100 ×2; A4663; A4344; J7120; J3010 ×3; J3490 ×4; J0665; J2003 ×2; J2250; J2704; J2405; J2710; A4649; A4930 ×3; A4215; A4213; A4222; A4221; A4216; J1335 ×2; A4223 ×2; A4600